=== PATIENT | male | born 1950 | race Caucasian/White ===

== ENCOUNTER → 2016-04-22 | Outpatient (CLI) | payer OTHER, MEDICARE ==
[~2016-04-22] MED LIST: ACET-1311 PO; DOCU100C22 PO; KPPS PO; MRLP527 PO; NYST100098 TOP; OMEP20CA9 PO; POTA10LI PO
== END | disposition home or self-care (01) ==
LOC: C.LABSPEC 16:44
PROVIDERS: ATTEND Internal Medicine
DX: B99.9 Unspecified infectious disease (principal)

== ENCOUNTER → 2016-05-26 | Day surgery (SDC) | payer OTHER, MEDICARE | END | disposition home or self-care (01) | LOC: C.ACU 13:38 | PROVIDERS: ATTEND Nurse Practitioner Family | DX: Z43.9 Encounter for attention to unspecified artificial opening (principal) ==

== ENCOUNTER → 2016-07-20 | Outpatient (CLI) | payer OTHER, MEDICARE ==
[2016-07-20 08:28] LABS: BASO % 0.2 %; BASO ABS # 0.01 K/uL (0-0.2); COMPLETE YES; EOS % 2.9 %; HEMATOCRIT 36.3 % (42-52); LYMPH % 31.6 %; LYMPH ABS # 1.66 K/uL (1.2-3.4); MEAN CELL VOLUME 86.2 fL (80-100); MEAN CORPUSCULAR HEMOGLOBIN 29.7 pg (25-34); MEAN CORPUSCULAR HGB CONC 34.4 g/dl (32-36); MEAN PLATELET VOLUME 10.8 fL (7.4-10.4); NEUT % 54.3 %; PLATELET COUNT 175 K/uL (130-400); RED BLOOD COUNT 4.21 M/uL (4.7-6.1); WHITE BLOOD COUNT 5.25 K/uL (4.8-10.8)
[2016-07-20 08:43] LABS: ALT/SGPT 32 U/L (12-78); BLOOD UREA NITROGEN 21 mg/dl (7-18); BUN/CREATININE RATIO 15.1 (10-20); CALCIUM 8.4 mg/dl (8.5-10.1); CARBON DIOXIDE 23 mmol/L (21-32); CHLORIDE 108 mmol/L (98-107); GLUCOSE 79 mg/dl (70-99); POTASSIUM 3.7 mmol/L (3.5-5.1); SODIUM 142 mmol/L (136-145)
[2016-07-20 08:46] LABS: ALKALINE PHOSPHATASE 91 U/L (45-117); AST/SGOT 18 U/L (15-37)
== END | disposition home or self-care (01) ==
LOC: C.LABSPEC 08:18
PROVIDERS: ATTEND Internal Medicine Hematology & Oncology
DX: C71.9 Malignant neoplasm of brain, unspecified (principal)

== ENCOUNTER → 2016-10-26 | Outpatient (CLI) | payer OTHER, MEDICARE ==
[2016-10-26 08:52] LABS: HEMATOCRIT 36.9 % (42-52); MEAN CELL VOLUME 89.8 fL (80-100); MEAN CORPUSCULAR HEMOGLOBIN 30.2 pg (25-34); MEAN CORPUSCULAR HGB CONC 33.6 g/dl (32-36); MEAN PLATELET VOLUME 10.5 fL (7.4-10.4); PLATELET COUNT 161 K/uL (130-400); RED BLOOD COUNT 4.11 M/uL (4.7-6.1); WHITE BLOOD COUNT 4.89 K/uL (4.8-10.8)
[2016-10-26 09:00] LABS: ALT/SGPT 29 U/L (12-78); BLOOD UREA NITROGEN 15 mg/dl (7-18); CALCIUM 8.1 mg/dl (8.5-10.1); CARBON DIOXIDE 28 mmol/L (21-32); CHLORIDE 107 mmol/L (98-107); GLUCOSE 78 mg/dl (70-99); SODIUM 142 mmol/L (136-145)
[2016-10-26 09:02] LABS: ALKALINE PHOSPHATASE 73 U/L (45-117); AST/SGOT 15 U/L (15-37)
== END | disposition home or self-care (01) ==
LOC: C.LABSPEC 08:24
PROVIDERS: ATTEND Nurse Practitioner Adult Health
DX: G40.909 Epilepsy, unspecified, not intractable, without status epilepticus (principal); D49.6 Neoplasm of unspecified behavior of brain

== ENCOUNTER → 2016-11-02 | Outpatient (CLI) | payer OTHER, MEDICARE ==
[2016-11-02 09:51] LABS: BLOOD UREA NITROGEN 14 mg/dl (7-18); CALCIUM 8.1 mg/dl (8.5-10.1); CARBON DIOXIDE 27 mmol/L (21-32); CHLORIDE 110 mmol/L (98-107); GLUCOSE 77 mg/dl (70-99); POTASSIUM 3.8 mmol/L (3.5-5.1); SODIUM 143 mmol/L (136-145)
== END | disposition home or self-care (01) ==
LOC: C.LABSPEC 09:06
PROVIDERS: ATTEND Internal Medicine
DX: N18.9 Chronic kidney disease, unspecified (principal)

== ENCOUNTER → 2017-03-07 | Outpatient (CLI) | payer OTHER, MEDICARE ==
[2017-03-07 16:56] LABS: BLOOD UREA NITROGEN 17 mg/dl (7-18); BUN/CREATININE RATIO 12.7 (10-20); CALCIUM 8.4 mg/dl (8.5-10.1); CARBON DIOXIDE 27 mmol/L (21-32); CHLORIDE 111 mmol/L (98-107); CREATININE 1.38 mg/dl (0.60-1.40); GLUCOSE 125 mg/dl (70-99); POTASSIUM 3.7 mmol/L (3.5-5.1); SODIUM 145 mmol/L (136-145)
[2017-03-07 17:01] LABS: CHOLESTEROL 119 mg/dl (0-200); CHOLESTEROL/HDL RATIO 2.6; HDL CHOLESTEROL 46 mg/dl; LDL CHOLESTEROL CALCULATED 39 mg/dl; TRIGLYCERIDES 170 mg/dl (0-150); VERY LOW DENSITY LIPOPROT CALC 34 mg/dl
[2017-03-08 08:00] LABS: ESTIMATED AVERAGE GLUCOSE 97 mg/dl; HA1C FLAG Normal (Normal)
== END | disposition home or self-care (01) ==
LOC: C.LABBFT 14:18
PROVIDERS: ATTEND Nurse Practitioner
DX: R73.03 Prediabetes (principal); Z12.5 Encounter for screening for malignant neoplasm of prostate

== ENCOUNTER 2017-05-22 18:48 | Emergency (ER) | payer OTHER, MEDICARE ==
[~2017-05-22] VITALS: Ht 177.8 cm; Wt 93.9 kg
[2017-05-22 18:58] VITALS: Ht 177.8 cm; Wt 93.9 kg
[2017-05-22] MEDS ORDERED: SODIUM CHLORIDE 0.9% 500ML 500 ML IV STA (19:06)
[2017-05-22 19:32] VITALS: O2SAT 97
[2017-05-22 19:40] LABS: BASO % 0.1 %; BASO ABS # 0.01 K/uL (0-0.2); EOS % 0.1 %; EOS ABS # 0.01 K/uL (0-0.5); HEMATOCRIT 41.3 % (42-52); HEMOGLOBIN 14.3 g/dL (14.0-18.0); IG# 0.06 K/uL (0.00-0.02); LYMPH % 4.4 %; MEAN CELL VOLUME 89.2 fL (80-100); MEAN CORPUSCULAR HEMOGLOBIN 30.9 pg (25-34); MEAN CORPUSCULAR HGB CONC 34.6 g/dl (32-36); MEAN PLATELET VOLUME 10.1 fL (7.4-10.4); MONO % 7.9 %; MONO ABS # 1.08 K/uL (0.11-0.59); NEUT % 87.1 %; NEUT ABS # 11.96 K/uL (1.4-6.5); PLATELET COUNT 160 K/uL (130-400); RED CELL DISTRIBUTION WIDTH SD 48.4 fL (36.4-46.3); WHITE BLOOD COUNT 13.72 K/uL (4.8-10.8)
[2017-05-22 19:49] LABS: PTT PATIENT 24.5 SECONDS (21.0-31.0)
--- NOTE | 2017-05-22 19:52 | EMERGENCY ROOM VISIT NOTE ---
History First contact with patient: 18:55 Chief Complaint: FALL Stated Complaint: FALL, AMS, HEMATOMA TO HEAD History of Present Illness The patient is a 67 year old male who presents to the Emergency Room with complaints of fall, head injury, and altered mental status. Patient is a poor historian, majority of history was obtained from the patient's family and staff at the [facility] where he lives. Per the staff, patient seemed a little confused today from his baseline. He reportedly had a fall around 5 PM this evening and his room, no notable injuries at that time. At approximately 5 :45 PM, he was found outside the facility and was noted to have fallen a second time, this time sustaining a frontal hematoma to the head. Nursing staff also noted that the patient had had urinary incontinence earlier in the day, finding a urine soaked chair in his room, which is very unusual for him. Per family and staff, patient's baseline is alert and oriented, very conversant, and fairly independent with ambulation and daily activities. The family states the patient is very altered from his baseline. When asked about pain, the patient states that his penis hurts, and the patient's family states that he has been complaining of dysuria today. He denies any headaches, chest pain, difficulty breathing, abdominal pain, or back pain. Review of Systems Limited review of systems provided by the patient's family due to altered mental status. Positives and negatives listed in the history of present illness. Past Medical/Surgical History Medical Problems: (1) Abdominal pain (2) Depression (3) Glioblastoma (4) History of operative procedure on knee (5) Lipoma (6) Nasal polyp Family History Cancer MOTHER FH: CHF (congestive heart failure) FATHER Social History Smoking Status: Never Smoker Alcohol Use: occasionally Drug Use: none Marital Status: Housing Status: other ([facility]) Occupation Status: employed Current/Historical Medications Scheduled Docusate Sodium (Docqlace), 100 MG PO DAILY Levetiractam (Levetiracetam), 10 ML PO BID Nystatin (Mycostatin), 1 APPLN TOP TID Potassium Chloride (Potassium Chloride), 7.5 ML PO BID Scheduled PRN Acetaminophen (Tylenol), 325-650 MG PO Q4-6HRS PRN for Pain or Fever Omeprazole (Prilosec), 20 MG PO DAILY PRN for GERD Polyethylene (Polyethylene Glycol 3350), 1 DOSE PO DAILY PRN for Constipation Allergies No known allergies Physical Exam Vital Signs Date Time Temp Pulse Resp B/P (MAP) Pulse Ox O2 Delivery O2 Flow Rate FiO2 05/22/17 23:18 93 18 93/64 96 Room Air 05/22/17 23:03 93 16 106/60 98 Room Air 05/22/17 21:42 113 20 107/80 98 Room Air 05/22/17 20:44 102 20 138/78 100 Room Air 05/22/17 19:43 104 18 113/81 98 Room Air 05/22/17 19:32 97 Room Air 05/22/17 19:11 105 05/22/17 18:58 36.8 115 20 132/77 95 Room Air Physical Exam CONSTITUTIONAL: Pleasant and cooperative. No acute distress. Mildly dehydrated , but otherwise well appearing and well nourished. HEENT: Normocephalic. Right frontal scalp hematoma, mild ecchymosis, nontender to palpation, no skull depression or crepitus. Pupils equal, round and reactive to light, EOMI. TMs normal. Pharynx normal. Tacky mucous membranes. NECK: Supple, full active range of motion without discomfort. No midline tenderness to palpation. No step-offs. RESPIRATORY: Clear to auscultation bilaterally with no wheezing, crackles, rhonchi or stridor. Equal expansion bilaterally. No ecchymosis or abrasions to the chest wall. CARDIOVASCULAR: Regular rate and rhythm with no murmurs, rubs or gallops. Normal peripheral perfusion. No edema. GASTROINTESTINAL: Soft, nontender, nondistended. No rebound tenderness or guarding. Right upper abdomen ostomy bag intact. No palpable masses or HSM. Bowel sounds present in all quadrants. No ecchymosis or abrasions. GENITOURINARY: No penile swelling or tenderness. No penile discharge or blood at the meatus. No swelling or tenderness of the scrotum or testes. MUSCULOSKELETAL: Full range of motion of all joints without discomfort. INTEGUMENTARY: No rash or other significant dermatologic conditions noted. NEUROLOGIC: Alert, oriented to self only, pleasantly confused. Able to follow commands and answer simple questions. Able to read simple words, but unable to identify the teachers. Cranial nerves II-XII grossly intact. No focal neurologic deficits noted. No pronator drift. No facial droop. Normal 5/5 strength and sensation intact to light touch in all 4 extremities. Medical Decision & Procedures ER Provider Diagnostic Interpretation: CT HEAD WITHOUT CONTRAST (CT) CLINICAL HISTORY: Head pain. Frontal hematoma. Change in mental status. Head trauma. COMPARISON STUDY: 03/24/2015 TECHNIQUE: Axial CT of the brain is performed from the vertex to the skull base. IV contrast was not administered for this examination. A dose lowering technique was utilized adhering to the principles of ALARA. CT DOSE: 1079.59 mGy.cm FINDINGS: There are postsurgical changes of a prior left frontal craniotomy. There is a left frontal extra-axial collection measuring 12 mm in thickness. This measures 2.5 mm greater than on the prior study. Although likely chronic, given the slight change in size and the history of trauma, a follow-up CT scan in 12 hours is recommended. There is left frontal encephalomalacia. There is no significant midline shift. There are patchy white matter hypodensities likely on a small vessel basis. There is no evidence of pathologic ventricular dilatation. There is no evidence of acute sinusitis IMPRESSION: 1. Postsurgical changes of a left frontal craniotomy with left frontal encephalomalacia 2. Slight interval increase in the size of the complex left extra-axial fluid collection subjacent to the craniotomy flap. This collection currently measures 11.7 mm as compared to 9.2 mm in March 2015. It would therefore seem prudent to obtain a follow-up CT scan or MRI study in approximately 12 hours time. ----- ] CT OF THE CERVICAL SPINE CLINICAL HISTORY: Neck pain status post trauma COMPARISON STUDY: No previous studies for comparison. CT DOSE: TECHNIQUE: CT scan of the cervical spine was performed from the skull base to the thoracic inlet. Images are reviewed in the axial, sagittal, and coronal planes. IV contrast was not administered for this examination. A dose lowering technique was utilized adhering to the principles of ALARA. FINDINGS: The visualized portions of the lung apices reveal no evidence of pneumothorax. The prevertebral soft tissues are normal. No fractures or subluxations are visualized. There are multilevel degenerative changes. 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 ----- CHEST 2 VIEWS ROUTINE CLINICAL HISTORY: Chest pain status post trauma COMPARISON STUDY: 10/31/2015 FINDINGS: The study was performed in apical lordotic fashion. The heart is at the upper limits of normal in size. No pneumothorax is visualized. There is no focal pulmonary consolidation. There are no pleural effusions.[ There is no failure. IMPRESSION: No active disease in the chest. Laboratory Results 05/22/17 19:28 Red Blood Count 4.63, Mean Corpuscular Volume 89.2, Mean Corpuscular Hemoglobin 30.9, Mean Corpuscular Hemoglobin Concent 34.6, Mean Platelet Volume 10.1, Neutrophils (%) (Auto) 87.1, Lymphocytes (%) (Auto) 4.4, Monocytes (%) (Auto) 7.9, Eosinophils (%) (Auto) 0.1, Basophils (%) (Auto) 0.1, Neutrophils # (Auto) 11.96, Lymphocytes # (Auto) 0.60, Monocytes # (Auto) 1.08, Eosinophils # (Auto) 0.01, Basophils # (Auto) 0.01 05/22/17 19:28 Test 05/22/17 19:28 05/22/17 19:40 White Blood Count 13.72 K/uL (4.8-10.8) Red Blood Count 4.63 M/uL (4.7-6.1) Hemoglobin 14.3 g/dL (14.0-18.0) Hematocrit 41.3 % (42-52) Mean Corpuscular Volume 89.2 fL (80-100) Mean Corpuscular Hemoglobin 30.9 pg (25-34) Mean Corpuscular Hemoglobin Concent 34.6 g/dl (32-36) Platelet Count 160 K/uL (130-400) Mean Platelet Volume 10.1 fL (7.4-10.4) Neutrophils (%) (Auto) 87.1 % Lymphocytes (%) (Auto) 4.4 % Monocytes (%) (Auto) 7.9 % Eosinophils (%) (Auto) 0.1 % Basophils (%) (Auto) 0.1 % Neutrophils # (Auto) 11.96 K/uL (1.4-6.5) Lymphocytes # (Auto) 0.60 K/uL (1.2-3.4) Monocytes # (Auto) 1.08 K/uL (0.11-0.59) Eosinophils # (Auto) 0.01 K/uL (0-0.5) Basophils # (Auto) 0.01 K/uL (0-0.2) RDW Standard Deviation 48.4 fL (36.4-46.3) RDW Coefficient of Variation 15.0 % (11.5-14.5) Immature Granulocyte % (Auto) 0.4 % Immature Granulocyte # (Auto) 0.06 K/uL (0.00-0.02) Prothrombin Time 10.3 SECONDS (9.0-12.0) Prothromb Time International Ratio 1.0 (0.9-1.1) Activated Partial Thromboplast Time 24.5 SECONDS (21.0-31.0) Partial Thromboplastin Ratio 0.9 Anion Gap 7.0 mmol/L (3-11) Est Creatinine Clear Calc Drug Dose 45.4 ml/min Estimated GFR () 43.3 Estimated GFR (Non- 37.4 BUN/Creatinine Ratio 9.8 (10-20) Calcium Level 8.4 mg/dl (8.5-10.1) Total Bilirubin 1.1 mg/dl (0.2-1) Aspartate Amino Transf (AST/SGOT) 21 U/L (15-37) Alanine Aminotransferase (ALT/SGPT) 37 U/L (12-78) Alkaline Phosphatase 69 U/L (45-117) Total Creatine Kinase 76 U/L (39-308) Troponin I < 0.015 ng/ml (0-0.045) Total Protein 7.5 gm/dl (6.4-8.2) Albumin 3.3 gm/dl (3.4-5.0) Globulin 4.2 gm/dl (2.5-4.0) Albumin/Globulin Ratio 0.8 (0.9-2) Thyroid Stimulating Hormone (TSH) 1.220 uIu/ml (0.300-4.500) Urine Color FORTUNATO Urine Appearance CLOUDY (CLEAR) Urine pH 5.0 (4.5-7.5) Urine Specific [place] >= 1.030 (1.000-1.030) Urine Protein TRACE (NEG) Urine Glucose (UA) NEG (NEG) Urine Ketones NEG (NEG) Urine Occult Blood 3+ (NEG) Urine Nitrite NEG (NEG) Urine Bilirubin NEG (NEG) Urine Urobilinogen NEG (NEG) Urine Leukocyte Esterase SMALL (NEG) Urine RBC >30 /hpf (0-4) Urine WBC 1-5 /hpf (0-5) Urine Epithelial Cells 5-10 /lpf (0-5) Urine Bacteria 1+ (NEG) Urine Hyaline Casts 1-5 /lpf (0-5) Urine Granular Casts 0-3 /lpf (0) Medications Administered Medications (Trade) Dose Ordered Sig/Joelle Route Start Time Stop Time Status Last Admin Dose Admin Sodium Chloride 500 ml @ 999 mls/hr Q31M STAT IV 05/22/17 19:06 05/22/17 19:36 DC 05/22/17 19:06 999 MLS/HR Ceftriaxone Sodium (Rocephin Inj) 1 gm NOW STAT IV 05/22/17 21:01 05/22/17 21:03 DC 05/22/17 21:18 1 GM Sodium Chloride 1,000 ml @ 100 mls/hr Q10H STAT IV 05/22/17 23:27 05/23/17 09:26 05/22/17 23:27 100 MLS/HR ECG Indication: tachycardia, other (fall, altered mental status) Rate (beats per minute): 105 Rhythm: sinus tachycardia Findings: nonspecific-ST abn (Anterolateral), no acute ischemic change, no ectopy Change: no significant change (when compared to EKGs from 10/31/2015 and 2014) Medical Decision CC: Patient presenting with complaint of altered mental status after fall and head injury Interpretation of Labs: Leukocytosis with left shift, no anemia, no significant electrolyte abnormalities., worsening renal function when compared to baseline, normal liver enzymes. Coagulation factors within normal limits. Troponin negative. UA shows hematuria and small leukocyte esterase with 1+ bacteria, negative for nitrates. Differential Diagnosis: Includes, but not limited to head trauma, intracranial hemorrhage, hematoma, cervical spine injury, UTI, dehydration, other infectious etiology, pneumonia, electrolyte abnormality, ACS, syncope, cardiac dysrhythmia , among others. Medication Reconciliation: I attest that I have personally reviewed the patient' s current medication list. Initial vital signs review: I reviewed the patient's vital signs and interpret them as follows: T: Afebrile; BP: Normotensive; HR: Tachycardic; RR: Within normal limits; Pulse Ox: Within normal limits on room air. Blood pressure screening: The patient was found to have normal blood pressure on screening and does not require follow-up for repeat blood pressure check. Summary: Patient was evaluated at bedside, history and physical exam performed. GCS 14. Patient is alert, oriented to person only, following commands and answering simple questions, in no acute distress, resting calmly in the stretcher. Patient's family at bedside, reporting that this is very unusual for the patient , and he is normally fully oriented and much more talkative. Neurologic exam is intact with no focal deficits noted, no pronator drift, no facial droop. There is a hematoma noted on the right frontal scalp. Patient is complaining of dysuria and penile pain. No penile or scrotal trauma noted on exam. Orders were placed at bedside for labs, UA, IV fluids for hydration, EKG, chest x-ray, CT imaging of the head and C-spine to evaluate for trauma. Patient discussed with Dr. Royal, who agrees with my assessment and plan. Labs reviewed as above, notable for some leukocytosis. UA a bit equivocal for UTI, however given the leukocytosis, altered mental status with abnormal occurrence of urinary incontinence today, and patient family reporting that he has complained of dysuria, will treat for UTI. Chest x-ray is unremarkable. EKG sinus tachycardia with nonspecific ST abnormalities in the anterolateral leads, not significantly changed on review of multiple previous EKGs by my interpretation. CT imaging of the brain concerning for expanding extra axial fluid compared to previous imaging, which may represent ICH. CT of the cervical spine is negative for acute traumatic injury. I spoke with Dr. Cabral, hospitalist, and Dr. Pollock, Neurology, who did not feel comfortable with admitting the patient here, and recommended he be transferred to a facility with neurosurgery services. I spoke with the patient's family regarding transfer, they verbalized understanding and requested the patient be transferred to [facility]. I spoke on the phone through the transfer service with Dr. Pham, trauma surgery service, who agrees to except the patient is a direct admission to their facility, and will further consult neurosurgery upon patient arrival. Patient reassessed multiple times throughout ED stay, he has remained stable, his mental status remains unchanged, and he continues to deny any complaints other than dysuria. Patient awaiting transport for transfer to [facility]. Head Trauma GCS Score: 14 Impression Primary Impression: Fall Additional Impressions: Altered mental status Head trauma UTI (urinary tract infection) Intracranial hemorrhage following injury Departure Information Dispostion Transfer Acute Care Facility ([facility], direct admit to trauma service, Dr. Pham) Condition FAIR Referrals [facility] (PCP) Patient Instructions My [facility] Problem Qualifiers Primary Impression: Fall Encounter type: initial encounter Qualified Codes: W19.XXXA - Unspecified fall, initial encounter Additional Impressions: Altered mental status Altered mental status type: disorientation Qualified Codes: R41.0 - Disorientation, unspecified Head trauma Encounter type: initial encounter Qualified Codes: S09.90XA - Unspecified injury of head, initial encounter UTI (urinary tract infection) Urinary tract infection type: acute cystitis Hematuria presence: with hematuria Qualified Codes: N30.01 - Acute cystitis with hematuria Intracranial hemorrhage following injury Encounter type: initial encounter Loss of consciousness presence/duration: with LOC of unspecified duration Qualified Codes: S06.309A - Unspecified focal traumatic brain injury with loss of consciousness of unspecified duration , initial encounter
[2017-05-22 20:00] LABS: ALBUMIN 3.3 gm/dl (3.4-5.0); ALT/SGPT 37 U/L (12-78); BLOOD UREA NITROGEN 18 mg/dl (7-18); CALCIUM 8.4 mg/dl (8.5-10.1); CARBON DIOXIDE 25 mmol/L (21-32); CREATININE 1.84 mg/dl (0.60-1.40); GLUCOSE 121 mg/dl (70-99); POTASSIUM 4.1 mmol/L (3.5-5.1); SODIUM 142 mmol/L (136-145)
[2017-05-22 20:11] LABS: ALKALINE PHOSPHATASE 69 U/L (45-117); AST/SGOT 21 U/L (15-37); TOTAL PROTEIN 7.5 gm/dl (6.4-8.2)
--- NOTE | 2017-05-22 20:11 | DIAGNOSTIC IMAGING REPORT ---
CT HEAD WITHOUT CONTRAST (CT) CLINICAL HISTORY: Head pain. Frontal hematoma. Change in mental status. Head trauma. COMPARISON STUDY: 03/24/2015 TECHNIQUE: Axial CT of the brain is performed from the vertex to the skull base. IV contrast was not administered for this examination. A dose lowering technique was utilized adhering to the principles of ALARA. CT DOSE: 1079.59 mGy.cm FINDINGS: There are postsurgical changes of a prior left frontal craniotomy. There is a left frontal extra-axial collection measuring 12 mm in thickness. This measures 2.5 mm greater than on the prior study. Although likely chronic, given the slight change in size and the history of trauma, a follow-up CT scan in 12 hours is recommended. There is left frontal encephalomalacia. There is no significant midline shift. There are patchy white matter hypodensities likely on a small vessel basis. There is no evidence of pathologic ventricular dilatation. There is no evidence of acute sinusitis IMPRESSION: 1. Postsurgical changes of a left frontal craniotomy with left frontal encephalomalacia 2. Slight interval increase in the size of the complex left extra-axial fluid collection subjacent to the craniotomy flap. This collection currently measures 11.7 mm as compared to 9.2 mm in March 2015. It would therefore seem prudent to obtain a follow-up CT scan or MRI study in approximately 12 hours time. Electronically signed by: Darrius Barrett M.D. 05/22/2017 8:10 PM Dictated Date/Time: 05/22/2017 8:03 PM
--- NOTE | 2017-05-22 20:13 | DIAGNOSTIC IMAGING REPORT ---
CT OF THE CERVICAL SPINE CLINICAL HISTORY: Neck pain status post trauma COMPARISON STUDY: No previous studies for comparison. CT DOSE: TECHNIQUE: CT scan of the cervical spine was performed from the skull base to the thoracic inlet. Images are reviewed in the axial, sagittal, and coronal planes. IV contrast was not administered for this examination. A dose lowering technique was utilized adhering to the principles of ALARA. FINDINGS: The visualized portions of the lung apices reveal no evidence of pneumothorax. The prevertebral soft tissues are normal. No fractures or subluxations are visualized. There are multilevel degenerative changes. 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 Electronically signed by: Darrius Barrett M.D. 05/22/2017 8:12 PM Dictated Date/Time: 05/22/2017 8:10 PM
--- NOTE | 2017-05-22 20:57 | DIAGNOSTIC IMAGING REPORT ---
CHEST 2 VIEWS ROUTINE CLINICAL HISTORY: Chest pain status post trauma COMPARISON STUDY: 10/31/2015 FINDINGS: The study was performed in apical lordotic fashion. The heart is at the upper limits of normal in size. No pneumothorax is visualized. There is no focal pulmonary consolidation. There are no pleural effusions.[ There is no failure. IMPRESSION: No active disease in the chest. Electronically signed by: Darrius Barrett M.D. 05/22/2017 8:55 PM Dictated Date/Time: 05/22/2017 8:55 PM
[2017-05-22] MEDS ORDERED: CEFTRIAXONE SOD INJ 1 GM ADDVIAL IV STA (21:01)
[2017-05-22 23:18] VITALS: TEMP 36.5
[2017-05-22] MEDS ORDERED: SODIUM CHLORIDE 0.9% 1000ML 1,000 ML IV STA (23:27)
--- NOTE | 2017-05-23 02:04 | EMERGENCY ROOM VISIT NOTE ---
ED Visit Note First contact with patient: 18:55 I reviewed the patient's past medical history, medications, and visit nursing notes. I discussed the case with the physician front end assistant, examined the patient, and agree with the findings and plan as documented in the physician assistants note.
[2017-05-23] MEDS ORDERED: POLY335019 PO (02:23)
[2017-05-23] MEDS ORDERED: TAMS0.4C38 PO (02:24)
[2017-05-23] MEDS ORDERED: [UNRECOGNIZED DRUG - CODE] TOP ×2 (02:26→02:29)
[2017-05-23] MEDS ORDERED: MICO2POW8 TOP (02:28)
[2017-05-23] MEDS ORDERED: TRMCR130WC TOP (02:28)
[2017-05-23 02:29] VITALS: BP 113/70; PULSE 97; O2SAT 98
[2017-05-23] MEDS ORDERED: ARTISOL12 OPB (02:30)
[2017-05-23] MEDS ORDERED: ARTISOL12 OP (02:30)
--- NOTE | 2017-05-24 11:37 | Pharmacy Progress Note ---
ED Pharmacist Culture FollowUp Date of Service: May 24, 2017. Patient transferred to [facility], where patient is still admitted. Faxed urine culture results to patient's floor at [facility] [phone]. Fax successful confirmed [phone]
== END 2017-05-23 02:38 | disposition short-term general hospital (02) ==
LOC: EDBD 18:48 → C.EDB 18:49
DX: S06.309A Unspecified focal traumatic brain injury with loss of consciousness of unspecified duration, initial encounter (principal); W19.XXXA Unspecified fall, initial encounter; N30.01 Acute cystitis with hematuria; Z80.9 Family history of malignant neoplasm, unspecified; Z82.49 Family history of ischemic heart disease and other diseases of the circulatory system

== ENCOUNTER → 2017-05-31 | Outpatient (CLI) | payer OTHER, MEDICARE ==
[~2017-05-31] MED LIST changes: +ARTISOL12 OP; +ARTISOL12 OPB; -DOCU100C22 PO; +MICO2POW8 TOP; -NYST100098 TOP; +POLY335019 PO; -POTA10LI PO; +TAMS0.4C38 PO; +TRMCR130WC TOP; +[UNRECOGNIZED DRUG - CODE] TOP
[2017-05-31 10:23] LABS: HEMATOCRIT 38.5 % (42-52); HEMOGLOBIN 13.1 g/dL (14.0-18.0); MEAN CELL VOLUME 87.9 fL (80-100); MEAN CORPUSCULAR HEMOGLOBIN 29.9 pg (25-34); MEAN PLATELET VOLUME 10.2 fL (7.4-10.4); PLATELET COUNT 191 K/uL (130-400); RED CELL DISTRIBUTION WIDTH CV 14.6 % (11.5-14.5); RED CELL DISTRIBUTION WIDTH SD 46.6 fL (36.4-46.3); WHITE BLOOD COUNT 5.78 K/uL (4.8-10.8)
[2017-05-31 10:34] LABS: BLOOD UREA NITROGEN 14 mg/dl (7-18); CARBON DIOXIDE 26 mmol/L (21-32); CREATININE 1.37 mg/dl (0.60-1.40); GLUCOSE 80 mg/dl (70-99); POTASSIUM 3.8 mmol/L (3.5-5.1); SODIUM 139 mmol/L (136-145)
== END | disposition home or self-care (01) ==
LOC: C.LABSPEC 10:04
PROVIDERS: ATTEND Nurse Practitioner Adult Health
DX: G40.909 Epilepsy, unspecified, not intractable, without status epilepticus (principal)

== ENCOUNTER → 2017-06-07 | Outpatient (CLI) | payer OTHER, MEDICARE | END | disposition home or self-care (01) | LOC: C.LABSPEC 13:18 | PROVIDERS: ATTEND Nurse Practitioner | DX: N39.0 Urinary tract infection, site not specified (principal) ==

== ENCOUNTER → 2017-06-12 | Outpatient (CLI) | payer OTHER, MEDICARE | END | disposition home or self-care (01) | LOC: C.LABSPEC 12:24 | PROVIDERS: ATTEND Nurse Practitioner | DX: N39.0 Urinary tract infection, site not specified (principal) ==

== ENCOUNTER → 2017-06-14 | Outpatient (CLI) | payer OTHER, MEDICARE | END | disposition home or self-care (01) | LOC: C.LABSPEC 09:23 | PROVIDERS: ATTEND Physician Assistant | DX: I62.00 Nontraumatic subdural hemorrhage, unspecified (principal); C71.9 Malignant neoplasm of brain, unspecified ==

== ENCOUNTER → 2017-06-30 | Outpatient (CLI) | payer OTHER, MEDICARE | END | disposition home or self-care (01) | LOC: C.LABSPEC 13:14 | PROVIDERS: ATTEND Nurse Practitioner | DX: N39.0 Urinary tract infection, site not specified (principal) ==

== ENCOUNTER → 2017-12-07 | Outpatient (CLI) | payer OTHER, MEDICARE ==
[2017-12-07 09:42] LABS: BASO % 0.6 %; BASO ABS # 0.03 K/uL (0-0.2); EOS % 3.3 %; EOS ABS # 0.18 K/uL (0-0.5); HEMOGLOBIN 13.2 g/dL (14.0-18.0); IG# 0.01 K/uL (0.00-0.02); LYMPH % 29.9 %; LYMPH ABS # 1.61 K/uL (1.2-3.4); MEAN CORPUSCULAR HEMOGLOBIN 30.1 pg (25-34); MEAN CORPUSCULAR HGB CONC 33.8 g/dl (32-36); MEAN PLATELET VOLUME 11.2 fL (7.4-10.4); MONO % 9.1 %; MONO ABS # 0.49 K/uL (0.11-0.59); NEUT % 56.9 %; NEUT ABS # 3.06 K/uL (1.4-6.5); PLATELET COUNT 162 K/uL (130-400); RED CELL DISTRIBUTION WIDTH CV 14.2 % (11.5-14.5); RED CELL DISTRIBUTION WIDTH SD 46.7 fL (36.4-46.3); WHITE BLOOD COUNT 5.38 K/uL (4.8-10.8)
[2017-12-07 10:14] LABS: ALKALINE PHOSPHATASE 64 U/L (45-117); ALT/SGPT 34 U/L (12-78); AST/SGOT 20 U/L (15-37); BLOOD UREA NITROGEN 17 mg/dl (7-18); CALCIUM 7.8 mg/dl (8.5-10.1); CARBON DIOXIDE 22 mmol/L (21-32); CREATININE 1.36 mg/dl (0.60-1.40); GLUCOSE 77 mg/dl (70-99); POTASSIUM 3.5 mmol/L (3.5-5.1); SODIUM 140 mmol/L (136-145); TOTAL PROTEIN 6.4 gm/dl (6.4-8.2)
== END | disposition home or self-care (01) ==
LOC: C.LABSPEC 08:48
PROVIDERS: ATTEND Internal Medicine Hematology & Oncology
DX: C71.1 Malignant neoplasm of frontal lobe (principal)